=== PATIENT | male | born 1985 | race Caucasian/White ===

== ENCOUNTER 2024-09-03 06:07 | Emergency (ER) | payer BC, SELFPAY ==
[2024-09-03 06:09] VITALS: BP 149/107
[2024-09-03 06:36] VITALS: BMI 28.3
[2024-09-03] MEDS: DUONEB 3 ML INH (06:39)
[2024-09-03] MEDS: DELTASONE 50 MG PO (06:39)
--- NOTE | 2024-09-03 06:41 | ED.GENMED ---
History of Present Illness
General
Chief Complaint: Cold/Flu/URI Symptoms
Source: patient and previous radiology exam
Exam Limitations: none
Time Seen by Provider: 09/03/24 06:21
Nursing documentation reviewed up to this point in time: agreed with
History of Present Illness
History of Present Illness:
38-year-old male cough congestion fever for few days seen in urgent care told he had pneumonia and then had a formal report from his x-ray told was pneumonia given cough meds no antibiotics continues to have cough coughed up some blood this morning
is concerned that he thinks he may be getting worse, no nausea or vomiting, no blood thinners does not drink or smoke also worried he has tuberculosis or whooping cough, negative COVID and flu yesterday
Past History
Past History
ED Past Medical History: None
ED Past Surgical History: None and Other (Hernia, vasectomy)
Social History
Tobacco: Non-smoker
Alcohol: Occasional
Drug: None
Personal:
Living: with family
Employment: Employed
Family History
Family History: Other (Child with hooping cough a few weeks ago)
Review of Systems
Review of Systems
All Other Systems: Not applicable
Constitutional: Reports fever and fatigue; Denies weight loss or night sweats
Respiratory: Reports cough, hemoptysis and trouble breathing
Cardiac: Reports no symptoms
ABD/GI: Reports no symptoms
Phy Exam
Physical Exam
Physical Exam:
Physical Exam
General: no apparent distress, not acutely ill
Neck: no jaundice
Heart: s1/s2 regular rate and rhythm, no murmur. equal radial pulses.
Lungs: Rhonchi bilateral
Abdomen: Nontender
Neuro: alert and oriented. no focal neurological deficits
Skin: no rash
Psychiatric: well kept. interactive and cooperative
Extremities: no edema.
Sepsis
Sepsis Screening
Sepsis Assessment: Sepsis Ruled Out
Sepsis Screen
Sepsis Screen: Sepsis Ruled Out
Date: 09/03/24
Time: 07:51
Course
Orders/Labs/Results
Orders:
Orders
09/03/24 06:27
Ipratropium/Albuterol Sulfate [Duoneb] 3 ml INH R NOW STA
Prednisone [Deltasone] 50 mg PO NOW STA
CR Chest - 2 Views Urgent
Comment:
Reason For Exam: sob
09/03/24 06:41
RSV [Respiratory Syncytial Virus] Urgent
JOANA Source: Nasal Swab
Specimen Description:
Date Specimen was Collected: 09/03/24
Time Specimen was Collected: 06:30
Vital Signs
Initial and Last Documented VS:
Initial Vital Signs
Temp Pulse Resp BP Pulse Ox
99.4 F 69 20 149/107 95
09/03/24 06:09 09/03/24 06:09 09/03/24 06:09 09/03/24 06:09 09/03/24 06:09
Last Documented Vital Signs
Temp Pulse Resp BP Pulse Ox
99.4 F 69 20 149/107 95
09/03/24 06:09 09/03/24 06:09 09/03/24 06:09 09/03/24 06:09 09/03/24 06:09
MDM/Problems Addressed
Differential Diagnosis Includes:
Bronchitis pneumonia URI doubt malignancy
MDM/Problems Addressed:
Cough
*Radiology
Radiology exam reviewed: preliminary read by ED provider
*Pulse Oximetry
Patient hypoxic: no
*Critical Care Note
Total Time (30-74mins, 75-104mins- exclusive of procedures): Not Applicable
Data Reviewed
Review of Other/Old Records Reveals: Radiology Studies
Source: patient
Update Note
Update Note:
X-ray of yesterday noted looks like it was underpenetrated and then normal thus the discrepancy, will repeat his x-ray here, check RSV including cough, nebs steroids consideration for empiric antibiotic
update, feeling better, cxr noted, report noted
calves non tender bilterally, doubt PT
pt with temp of 101,7
will start empric zmax
ED Attending Note
-
Portions of this chart may have been created with voice recognition software.� Occasional wrong word or��sound alike� substitutions may have occurred due to the inherent limitations of voice recognition software.
Discharge Plan
Departure
Patient Disposition: Home (Routine Discharge)
Date of Disposition: 09/03/24
Time of Disposition: 07:48
Patient with high blood pressure during this ER visit?: No
Condition: Good
Covid-19: Not Applicable
Discharge Problem:
Acute bronchitis
Instructions: Acute Bronchitis, Adult (DC)
Prescriptions:
New
methylprednisolone [Medrol (Sandro)] 4 mg tablets,dose pack
See Rx Instructions .ROUTE .COMPLEX Qty: 21 0RF
Rx Instructions:
for 6 days
albuterol sulfate 90 mcg/actuation aerosol powdr breath activated
2 inh inhalation Q6H PRN (Reason: shortness of breath or wheezing) Qty: 1 0RF
azithromycin [Zithromax] 250 mg tablet
250 mg PO DAILY Qty: 4 0RF
Referrals:
Petra Heredia MD [Family Provider] - Next open appointment
Interventions
Interventions:
*Risk Screen - Suicide Last Done: 09/03/24 06:09
*General Assessment Last Done: 09/03/24 06:09
*Neglect/Abuse Screening Last Done: 09/03/24 06:09
ED- Fall Risk Assessment Last Done: 09/03/24 06:09
*ED COVID-19 Vaccine History Last Done: 09/03/24 06:09
ED- Pulmonary Assessment Last Done: 09/03/24 06:37
Discharge Date and Time
Print Language: BENGALI
[2024-09-03 08:03] VITALS: BP 171/108
[2024-09-03] MEDS: ZITHROMAX 500 MG PO (08:03)
== END 2024-09-03 08:15 | disposition home or self-care (01) ==
LOC: EMR 06:07
PROVIDERS: EMERGENCY PHYSICIAN Emergency Medicine; FAMILY PHYSICIAN Family Medicine
DX: J20.9 Acute bronchitis, unspecified (principal); R04.2 Hemoptysis; K58.9 Irritable bowel syndrome, unspecified; G43.909 Migraine, unspecified, not intractable, without status migrainosus
CPT/HCPCS: 99283; 94640; 71046; 87807

== ENCOUNTER → 2024-09-26 07:15 | Outpatient (REF) | payer BC, SELFPAY | LOC: HWRCS 07:15 | PROVIDERS: ATTENDING PHYSICIAN Internal Medicine; FAMILY PHYSICIAN Registered Nurse | DX: I10 Essential (primary) hypertension (principal) | CPT/HCPCS: 93306 ==